=== PATIENT | female | born 1960 | race Caucasian/White ===

== ENCOUNTER → 2017-10-27 13:12 | Outpatient (CLI) | payer OTHER, SELFPAY ==
--- NOTE | 2017-10-27 13:16 | MR_ITS ---
MR head/brain wo con HISTORY: Severe headache with visual disturbance ITS.REASON: ATYPICAL MIGRAINES, CHRONIC NECK PAIN ORDERING PHYSICIAN: WM Mike Dobson PATIENT AGE: 57 years Comparison: None TECHNIQUE: Standard multiplanar multiecho sequences are performed without contrast. FINDINGS: No midline shift, mass effect, intracranial hemorrhage, hydrocephalus, or acute infarction is evident. There are only a few T2 white matter hyperintensities noted which are nonspecific. The mesentery, optic chiasm, and cerebellar tonsils are unremarkable hippocampal gyri are unremarkable in the temporal horns are symmetric. There is mild prominence of the subdural space in the frontoparietal region bilaterally. This however is symmetric and may be developmental/normal variant. No effacement of the sulci evident in these regions. The cerebellopontine angle, cerebellum, and brainstem are unremarkable. No large aneurysms are evident. Small aneurysms may not be delineated with this technique may be better evaluated for with MRA if clinically warranted. No sinus air-fluid level or mastoid effusion IMPRESSION: 1. No acute intracranial findings. 2. Only minimal T2 white matter hyperintensities are noted nonspecific and could be related to minor microangiopathic changes but may also be seen with migraine headache.
== END ==
PROVIDERS: PCP Family Medicine; Visit Provider Family Medicine
DX: G43.009 Migraine without aura, not intractable, without status migrainosus (principal); M54.2 Cervicalgia; F41.1 Generalized anxiety disorder; Z79.899 Other long term (current) drug therapy
CPT/HCPCS: 70551

== ENCOUNTER → 2019-05-14 13:58 | Outpatient (CLI) | payer OTHER, SELFPAY ==
--- NOTE | 2019-05-14 14:01 | MR_ITS ---
PROCEDURE: MR LUMBAR SPINE WO CON Patient Age:59Y CLINICAL INDICATION: LUMAGO WITH SCIATICA PAIN symptoms past year. Itching tingling right groin. Bilateral buttocks pain COMPARISON: No exams were available for comparison TECHNIQUE: Standard multiplanar multiecho sequences are performed without contrast. 3-D MIP and myelographic images are also rendered and reviewed FINDINGS: The L1 with old possibly traumatic vs congenital wedging L1 vertebra. Prominent Schmorl's node into the right superior endplate L1. Schmorl's node 9 mm depth nearly 12 mm AP. These features appear old. The other vertebral bodies appear intact and unremarkable T11/12 minimal disc space narrowing but no significant posterior bulge. Minimal Schmorl's modes of both both endplates.. Mild facet hypertrophy but foramen widely patent. The T12/L1. Mild disc space narrowing. Mild the disc bulge.. Mild facet hypertrophy most evident to the right with slight narrowing the spinal canal most evident right paracentral region. L1/L2: Disc intact with only slight narrowing posteriorly. No significant bulge L2/3 disc intact. Unremarkable but neural foramen widely patent L3/4. Slight loss of disc hydration with a scant central bulge.-note slight increased signal at the central disc bulge, could reflect a minor annular fissure the minor facet arthropathy L4/5 disc height maintained and intact but slight loss of disc hydration. Generous volume central canal. Note minimal disc bulge towards left foramen with mild left foraminal encroachment the, axial image 23, sagittal 11 again minimal high signal at the posterior disc margin at left foramen is noted and could reflect 8 minor annular fissure but subtle unimpressive. But minor facet are arthropathy but L5/S1. Disc intact remains well hydrated. Unremarkable. Mild facet arthropathy neural foramen widely patent 3D MR myelogram image set a demonstrate the slight anterior and posterior indentation of the thecal sac at the T12/L1 level to the right due to the the mild disc bulge along with mild facet arthropathy most evident to the right. Incidental note is made of a 3.3 cm most likely benign renal cyst anterior left kidney. Ultrasound could further support its benign nature. IMPRESSION: 1.No prominent disc herniation nor prominent spinal stenosis. But there is slight narrowing the spinal canal at T12/L1 2.Mild old or congenital wedging at L1 vertebra, associated with a prominent superior endplate Schmorl's node the the. 3.Early degenerative changes with observations below: . T12/L1 mild disc bulge, along with facet hypertrophy to right, slightly narrows thecal sac most evident to the right . L3/4. Minor central disc bulge, with small high signal focus posterior disc margin here-Could reflect small annular fissure . L4/5. Mild disc bulge towards left foramen with tiny focus increased signal posterior left disc margin . Mild left foraminal encroachment 4. Incidental note appearing 3.3 cm benign appearing renal cyst anterior left kidney Dictated by: Hong Hughes MD 05/15/2019 09:13 Electronically signed by Hong Hughes MD in [place] 05/15/2019 09:13
== END ==
PROVIDERS: PCP Family Medicine; Visit Provider Family Medicine
DX: M54.40 Lumbago with sciatica, unspecified side (principal); M54.6 Pain in thoracic spine
CPT/HCPCS: 72148; 76376

== ENCOUNTER → 2021-05-13 10:33 | Outpatient (CLI) | payer OTHER, SELFPAY ==
--- NOTE | 2021-05-13 10:38 | MR_ITS ---
PROCEDURE: MR HEAD/BRAIN WO CON CLINICAL INDICATION: DIZZINESS AND GIDDINESS COMPARISON: MR BRAINWO MR head/brain wo con from 10/27/2017 TECHNIQUE: Routine multiplanar multi echo sequences are performed without gadolinium enhancement. FINDINGS: No midline shift, mass effect, intracranial hemorrhage, or hydrocephalus. The cerebellopontine angles, cerebellum, and brainstem have an unremarkable appearance. No evidence of acute infarction. There are few scattered T2 white matter hyperintensities which are nonspecific. The pituitary, optic chiasm, corpus callosum, and craniocervical junction are unremarkable. Nonspecific mild prominence is subdural space noted over the cerebral convexities. No significant atrophy at this region. No mastoid effusion or sinus air-fluid level. Thin section images are obtained of the cerebellopontine angle showing no obvious CP angle mass. IMPRESSION: No acute intracranial findings. No significant change Dictated by: Ernesto Duvall MD 05/14/2021 11:38 Ernesto Duvall MD in [facility] 05/14/2021 11:38
== END ==
PROVIDERS: PCP Family Medicine; Visit Provider Family Medicine
DX: R42 Dizziness and giddiness (principal)
CPT/HCPCS: 70551

== ENCOUNTER → 2022-03-23 15:40 | Outpatient (CLI) | payer OTHER, SELFPAY ==
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
== END ==
PROVIDERS: PCP Family Medicine; Visit Provider Family Medicine
DX: R42 Dizziness and giddiness (principal); R29.2 Abnormal reflex
CPT/HCPCS: 72141; 76376